=== PATIENT | male | born 1975 | race Caucasian/White ===

== ENCOUNTER 2023-02-23 19:51 | Emergency (ER) | payer BC ==
[~2023-02-23] VITALS: Ht 182.9 cm; Wt 122.7 kg
[2023-02-23 20:06] VITALS: BP 112/9
[2023-02-23] MEDS ORDERED: HYDROcodone/acetaminophen 10/325mg tab PO ONE (21:15)
[2023-02-23] MEDS ORDERED: ketorolac trometh inj. 60 MG/2 ML VIAL IM ONE (21:15)
[2023-02-23] MEDS ORDERED: HYDR-3973 PO (21:54)
[2023-02-23] MEDS ORDERED: IBUP-1986 PO (21:54)
== END 2023-02-23 22:28 | disposition home or self-care (01) ==
LOC: ER 19:52
DX: S76.311A Strain of muscle, fascia and tendon of the posterior muscle group at thigh level, right thigh, initial encounter (principal); Z72.89 Other problems related to lifestyle; Z79.899 Other long term (current) drug therapy; X50.9XXA Other and unspecified overexertion or strenuous movements or postures, initial encounter; Y93.17 Activity, water skiing and wake boarding; Y92.89 Other specified places as the place of occurrence of the external cause; Y99.8 Other external cause status
CPT/HCPCS: 73552; 73560; 96372; 99284; J1885